=== PATIENT | male | born 1975 | race Caucasian/White ===

== ENCOUNTER 2019-03-24 01:20 | Observation (INO) ==
[2019-03-24] MEDS ORDERED: *HR* Labetalol 20 MG/4 ML SYRINGE IVP ONE (01:53)
[2019-03-24] MEDS ORDERED: Metoclopramide 10 MG/2 ML VIAL IVP ONE (01:54)
[2019-03-24 02:35] LABS: Bilirubin,Urine Negative (Negative); Blood,Urine Negative (Negative); Clarity,Urine Clear (Clear); Color,Urine Yellow (Yellow); Glucose,Urine (UA) Normal (Normal); Ketones,Urine Negative (Negative); Leukocyte Esterase,Urine Negative (Negative); Nitrite,Urine Negative (Negative); Protein,Urine Trace mg/dL (Neg-Trace); Urobilinogen,Urine Normal (Normal)
[2019-03-24 02:41] LABS: Basophils % 0.3 %; Eosinophils # 0.1 K/mcL (0.0-0.6); Eosinophils % 0.8 %; Hemoglobin 15.1 g/dL (12.9-16.9); Immature Granulocytes % 0.4 % (0-4); Lymphocytes # 1.4 K/mcL (0.6-4.6); Lymphocytes % 18.3 %; Mean Corpuscular Hemoglobin 33.8 pg (28.0-33.3); Mean Platelet Volume 9.5 fL (9.4-12.4); Monocytes # 0.5 K/mcL (0.0-1.3); Monocytes % 7.1 %; Neutrophils # 5.4 K/mcL (1.6-8.9); Platelet Count 196 K/mcL (140-400); Red Blood Count 4.47 M/mcL (4.19-5.50); Red Cell Distribution Width 12.5 % (11.5-14.5); Segmented Neutrophils % 73.1 %; White Blood Count 7.4 K/mcL (4.3-11.1)
[2019-03-24] MEDS ORDERED: Aspirin 81 MG TAB.CHEW PO STA (02:56)
[2019-03-24 02:59] LABS: BUN/Creatinine Ratio 9 (6-26); Blood Urea Nitrogen 9 mg/dL (6-20); Calcium 9.2 mg/dL (8.6-10.3); Carbon Dioxide 26 mEq/L (23-29); Chloride 103 mEq/L (98-107); Glucose 119 mg/dL (70-105); Osmolality,Calculated 282 (280-300); Potassium 3.6 mEq/L (3.5-5.1); Sodium 136 mEq/L (136-145); eGFR For African Americans > 60 (> 60); eGFR For Non-African Americans > 60 (> 60)
[2019-03-24] MEDS ORDERED: niCARdipine 20 MG/200 ML MLS IVC SCH (03:15)
[2019-03-24 03:24] LABS: Amphetamine Screen,Urine Negative ng/mL (Cutoff=1000); Barbiturate Screen,Urine Negative ng/mL (Cutoff=200); Benzodiazepines Screen,Urine Negative ng/mL (Cutoff=200); Cannabinoid Screen,Urine Negative ng/mL (Cutoff = 50); Cocaine Screen,Urine Negative ng/mL (Cutoff= 300); Opiate Screen,Urine Negative ng/mL (Cutoff=300); Phencyclidine Screen,Urine Negative ng/mL (Cutoff=25)
[2019-03-24] MEDS ORDERED: Ondansetron 4 MG/2 ML VIAL IVP PRN (03:54)
[2019-03-24] MEDS ORDERED: traMADol 50 MG TABLET PO ONE (04:11)
[2019-03-24] MEDS: *HR* Heparin 5,000 UNIT/ML VIAL SQ SCH ×2 (08:53→18:17)
[2019-03-24] MEDS ORDERED: amLODIPine 5 MG TABLET PO SCH (09:00)
[2019-03-24] MEDS ORDERED: Lisinopril-HCTZ 20-12.5mg TABLET PO SCH (09:00)
[2019-03-24] MEDS: Acetaminophen 325 MG TABLET PO PRN (18:15)
[2019-03-24] MEDS ORDERED: NIFEdipine 10 MG CAPSULE PO ONE (20:35)
[2019-03-25] MEDS: Acetaminophen 325 MG TABLET PO PRN (00:14)
[2019-03-25] MEDS: Aspirin Enteric Coated 81 MG Tablet PO SCH (20:24)
[2019-03-25] MEDS: niCARdipine 20 MG/200 ML MLS IVC SCH (20:58)
[2019-03-26] MEDS: niCARdipine 20 MG/200 ML MLS IVC SCH ×3 (07:05→16:24)
[2019-03-26] MEDS: Aspirin Enteric Coated 81 MG Tablet PO SCH (07:59)
[2019-03-26] MEDS: Acetaminophen 325 MG TABLET PO PRN (08:00)
[2019-03-26 08:43] LABS: Basophils % 0.4 %; Eosinophils # 0.1 K/mcL (0.0-0.6); Eosinophils % 0.8 %; Hematocrit 46.2 % (37.5-50.1); Hemoglobin 16.1 g/dL (12.9-16.9); Immature Granulocytes % 0.3 % (0-4); Lymphocytes # 1.6 K/mcL (0.6-4.6); Lymphocytes % 17.2 %; Mean Corpuscular HGB Conc 34.8 g/dL (31.6-35.5); Mean Corpuscular Hemoglobin 33.7 pg (28.0-33.3); Mean Corpuscular Volume 96.7 fL (83.0-100.0); Mean Platelet Volume 9.6 fL (9.4-12.4); Monocytes # 0.6 K/mcL (0.0-1.3); Monocytes % 6.5 %; Neutrophils # 7.1 K/mcL (1.6-8.9); Platelet Count 184 K/mcL (140-400); Red Blood Count 4.78 M/mcL (4.19-5.50); Red Cell Distribution Width 12.4 % (11.5-14.5); Segmented Neutrophils % 74.8 %; White Blood Count 9.5 K/mcL (4.3-11.1)
[2019-03-26] MEDS ORDERED: Lisinopril 20 MG TABLET PO SCH (09:00)
[2019-03-26] MEDS ORDERED: amLODIPine 5 MG TABLET PO SCH (09:00)
[2019-03-26 09:04] LABS: BUN/Creatinine Ratio 13 (6-26); Blood Urea Nitrogen 11 mg/dL (6-20); Calcium 9.7 mg/dL (8.6-10.3); Carbon Dioxide 24 mEq/L (23-29); Chloride 102 mEq/L (98-107); Glucose 135 mg/dL (70-105); Osmolality,Calculated 283 (280-300); Potassium 4.1 mEq/L (3.5-5.1); Sodium 136 mEq/L (136-145); eGFR For African Americans > 60 (> 60); eGFR For Non-African Americans > 60 (> 60)
[2019-03-26] MEDS: hydrALAZINE 25 MG TABLET PO SCH ×2 (13:33→16:23)
[2019-03-26 20:10] VITALS: BP 151/103
== END 2019-03-26 18:00 | disposition home or self-care (01) ==
LOC: EMEROOARM 01:20 → 3ANU 01:20 → 2NNU 03-25 13:50
PROVIDERS: ADMIT Internal Medicine; ATTEND Internal Medicine